=== PATIENT | female | born 1945 | race Caucasian/White ===

== ENCOUNTER 2021-06-29 09:22 | Emergency (ER) | payer MEDICARE, OTHER ==
[2021-06-29 09:32] VITALS: BP 150/71
[2021-06-29] MEDS ORDERED: lidocaine 1% 20 ML MDV SUBQ ONE (10:26)
[2021-06-29] MEDS ORDERED: TETANUS/DIPHTHERIA/PERTUSSIS 0.5 ML SYRINGE IM ONE (10:26)
--- NOTE | 2021-06-29 10:27 | ED Physician Documentation ---
PD HPI UPPER EXT INJURY - Stated complaint Stated Complaint: RT WRIST LAC - Chief complaint Chief Complaint: Laceration - History obtained from History obtained from: Patient - History of Present Illness Location: Right, Wrist Type of injury: Laceration Where injury occurred: Home Timing - onset: Today Timing - duration: Minutes Improved by: Rest, Dressing Worsened by: Moving, Palpating Associated symptoms: No: Weakness, Numbness, Tingling, Swelling, Discolored Similar symptoms before: Diagnosis (laceration) Recently seen: Not recently seen - Additonal information Additional information: 75-year-old female was doing the dishes washing a mug when the mug slipped and fell and broke she went to go catch it and it lacerated the volar surface of her right wrist. She was able to control the bleeding with direct pressure she is not up-to-date on her tetanus immunization and she has come into the emergency department for suturing. Review of Systems Constitutional: denies: Fever Nose: denies: Congestion Throat: denies: Sore throat Respiratory: denies: Cough GI: denies: Vomiting Skin: reports: Laceration (s) PD PAST MEDICAL HISTORY - Allergies Allergies/Adverse Reactions: Allergies Allergy/AdvReac Type Severity Reaction Status Date / Time No Known Drug Allergies Allergy Verified 06/29/21 09:32 PD ED PE NORMAL - Vitals Vital signs reviewed: Yes (hypertensive ) - General General: Alert and oriented X 3, No acute distress, Well developed/nourished - HEENT HEENT: Atraumatic, PERRL, EOMI - Respiratory Respiratory: No respiratory distress - Derm Derm: Normal color, Warm and dry, No rash - Extremities Extremities: No deformity, No edema, Other (There is a 3 cm laceration to the volar surface of the wrist right forearm distally over the ulna. There is violation of the flexor tendon sheath without violation of the tendon. 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, No motor deficit, No sensory deficit, Normal speech Eye Opening: Spontaneous Motor: Obeys Commands Verbal: Oriented GCS Score: 15 - Psych Psych: Normal mood, Normal affect Results - Vitals Vitals: Vital Signs - 24 hr 06/29/21 09:30 Temperature 97.9 C H Heart Rate 65 Respiratory 16 Rate Blood Pressure 150/71 H O2 Saturation 99 Oxygen O2 Source Room air Procedures - Laceration (location) r forearm Wound type: Linear, Into subcut fat, Clean Neurovascular status: Sensory intact, Motor intact, Vascular intact Tendon involvement: Tendon intact, Other (tendon sheath violated.) Anesthesia: Lidocaine 1% Wound preparation: Hibiclens, Irrigated copiously NS, Wound explored, To the base Skin layer closure: Nylon, Interrupted, Size #-0 - enter number (4-0) Other: Patient tolerated well, No complications, Neurovascular intact, Dressing applied, Tetanus booster given PD MEDICAL DECISION MAKING - ED course Complexity details: considered differential, d/w patient ED course: 75-year-old female with a 3 cm laceration to the right volar forearm was able to control bleeding with direct pressure she has a laceration that goes down to the flexor tendon it violates the sheath but not the tendon function is intact the wound is cleansed and sutured and the patient is updated on her tetanus. Departure - Departure Disposition: 01 Home, Self Care Clinical Impression: Laceration of right forearm Qualifiers: Encounter type: initial encounter Qualified Code(s): S51.811A - Laceration without foreign body of right forearm, initial encounter Instructions: ED Laceration Ext Sutr Stap Tape Follow-Up: Your, doctor [Other] Comments: Sutures will need to be removed in 7 to 10 days.
== END 2021-06-29 10:54 | disposition home or self-care (01) ==
LOC: ED 09:22
DX: S61.511A Laceration without foreign body of right wrist, initial encounter (principal); W25.XXXA Contact with sharp glass, initial encounter; Y93.G1 Activity, food preparation and clean up; Z23 Encounter for immunization
CPT/HCPCS: 12002; 90471; 99283